=== PATIENT | female | born 1940 | race African-American/Black ===

== ENCOUNTER 2018-07-10 12:25 | Inpatient (IN) | payer MEDICARE ==
[~2018-07-10] VITALS: Ht 170.2 cm; Wt 57.8 kg
[2018-07-10 12:53] LABS: BASOPHILS % 0.4 % (0.0-2.0); CHLORIDE 112 mEq/L (98-107); EOSINOPHILS % 1.2 % (0.0-5.0); LYMPHOCYTES % 38.1 % (20.0-50.0); MEAN CORPUSCULAR VOLUME 71.8 fL (81.0-99.0); MONOCYTES % 6.3 % (2.0-8.0); PLATELET 206 x1000/uL (130-400); RED BLOOD CELL COUNT 2.85 mill/uL (4.2-5.4); RED CELL DISTRIBUTION WIDTH 16.1 % (11.6-14.6)
[2018-07-10 12:55] LABS: INR 1.1; PROTHROMBIN TIME 11.2 sec (9.6-11.0)
[2018-07-10 12:59] LABS: HEMOGLOBIN. 6.6 g/dL (12.0-16.0)
[2018-07-10 13:00] LABS: HEMATOCRIT. 20.5 % (36.0-48.0)
[2018-07-10] MEDS ORDERED: FAMOTIDINE 20MG/2ML VIAL IV ONE (13:15)
[2018-07-10] MEDS ORDERED: SODIUM CHLORIDE 0.9% 500 ML IV ONE (13:15)
[2018-07-10] MEDS ORDERED: PANTOPRAZOLE 40MG DR TABLET PO SCH (16:00)
[2018-07-10] MEDS ORDERED: PANTOPRAZOLE SODIUM 40 MG/VIAL IV ONE (16:30)
[2018-07-10 16:51] LABS: TOTAL IRON BINDING CAPACITY 217 ug/dL (250-450)
[2018-07-10 21:02] LABS: CLARITY URINE CLOUDY (CLEAR); COLOR URINE YELLOW (YELLOW); KETONES URINE NEGATIVE (NEGATIVE); LEUKOCYTE ESTERASE URINE NEGATIVE (NEGATIVE); NITRITE URINE NEGATIVE (NEGATIVE); OCCULT BLOOD URINE 3+ (NEGATIVE); PROTEIN URINE NEGATIVE (NEGATIVE); SPECIFIC GRAVITY URINE 1.013 (1.005-1.030); UROBILINOGEN URINE 0.2 E.U./dL (0.2-1.0)
[2018-07-10 21:22] VITALS: BP 155/54
[2018-07-10] MEDS ORDERED: HYDROCODONE/ACETAMINOPHEN 5/325MG TABLET PO PRN (21:30)
[2018-07-10] MEDS ORDERED: IPRATROPIUM/ALBUTEROL 0.5-3(2.5)MG/3ML NEB INH PRN (21:30)
[2018-07-10] MEDS ORDERED: ACETAMINOPHEN 650MG/20.3ML UDC GT PRN (21:30)
[2018-07-10] MEDS ORDERED: CLONIDINE 0.1MG TABLET PO PRN (21:30)
[2018-07-10] MEDS ORDERED: ACETAMINOPHEN 650MG SUPP PR PRN (21:30)
[2018-07-10] MEDS ORDERED: ONDANSETRON HCL 4MG/2ML INJ IV PRN (21:30)
[2018-07-10] MEDS ORDERED: MAGNESIUM/ALUMINUM HYDROXIDE/SIMETHICONE 30ML UDC PO PRN (21:30)
[2018-07-10] MEDS ORDERED: NA PHOS,M-B/NA PHOS,DI-BA ENEMA 118ML PR PRN (21:30)
[2018-07-10] MEDS ORDERED: DOCUSATE SODIUM 100MG CAPSULE PO PRN (21:30)
[2018-07-10] MEDS ORDERED: DIPHENHYDRAMINE 50MG/ML VIAL IV PRN (21:30)
[2018-07-10] MEDS ORDERED: GUAIFENESIN 200MG/10ML SUGAR FREE UDC PO PRN (21:30)
[2018-07-10 21:40] LABS: *AMPHETAMINES SCREEN URINE NEGATIVE (NEGATIVE); *BARBITURATES SCREEN URINE NEGATIVE (NEGATIVE); CANNABINOID URINE SCREEN NEGATIVE (NEGATIVE); METHADONE URINE SCREEN NEGATIVE (NEGATIVE); OPIATES URINE SCREEN NEGATIVE (NEGATIVE); PHENCYCLIDINE URINE SCREEN NEGATIVE (NEGATIVE)
[2018-07-10 21:41] LABS: *BENZODIAZEPINES SCREEN URINE NEGATIVE (NEGATIVE); *COCAINE SCREEN URINE NEGATIVE (NEGATIVE)
[2018-07-10 22:08] VITALS: BP 155/53
[2018-07-10 22:54] LABS: BASOPHILS % 0.3 % (0.0-2.0); EOSINOPHILS % 0.7 % (0.0-5.0); HEMATOCRIT. 22.5 % (36.0-48.0); HEMOGLOBIN. 7.4 g/dL (12.0-16.0); LYMPHOCYTES % 28.6 % (20.0-50.0); MEAN CORPUSCULAR HEMOGLOBIN 24.5 pg (28.0-32.0); MEAN CORPUSCULAR VOLUME 74.5 fL (81.0-99.0); MEAN PLATELET VOLUME 9.1 fl (7.4-10.4); MONOCYTES % 8.2 % (2.0-8.0); NEUTROPHILS % 62.2 % (40.0-76.0); PLATELET 179 x1000/uL (130-400); RED BLOOD CELL COUNT 3.02 mill/uL (4.2-5.4); RED CELL DISTRIBUTION WIDTH 17.4 % (11.6-14.6)
[2018-07-10] MEDS: SODIUM CHLORIDE 0.45% 1,000 ML IV SCH (23:30)
[2018-07-11] VITALS (84 sets, daily range): BP systolic 68–144; BP diastolic 27–72
[2018-07-11] MEDS ORDERED: OCTREOTIDE 1,000 MCG in SODIUM CHLORIDE 0.9% 100 ML IV PRN ×2 (03:30→04:00)
[2018-07-11] MEDS ORDERED: ALBUMIN HUMAN 25GM/100ML (25%) IV SCH (03:30)
[2018-07-11] MEDS ORDERED: NOREPINEPHRINE 4 MG in DEXT 5% WATER 246 ML IV PRN ×2 (03:30→04:00)
[2018-07-11] MEDS ORDERED: SODIUM CHLORIDE 0.9% 1000ML BAG (SEPSIS BOLUS) IV ONE (03:30)
[2018-07-11 05:28] LABS: BASOPHILS % 0.1 % (0.0-2.0); EOSINOPHILS % 0.5 % (0.0-5.0); LYMPHOCYTES % 17.4 % (20.0-50.0); MEAN CORPUSCULAR HEMOGLOBIN 25.9 pg (28.0-32.0); MEAN PLATELET VOLUME 8.9 fl (7.4-10.4); MONOCYTES % 6.6 % (2.0-8.0); NEUTROPHILS % 75.4 % (40.0-76.0); PLATELET 132 x1000/uL (130-400); RED BLOOD CELL COUNT 2.54 mill/uL (4.2-5.4); RED CELL DISTRIBUTION WIDTH 18.6 % (11.6-14.6)
[2018-07-11 05:35] LABS: CHLORIDE 118 mEq/L (98-107)
[2018-07-11 05:45] LABS: LDL CHOLESTEROL 58 mg/dL (5-100)
[2018-07-11 05:46] LABS: HDL CHOLESTEROL 44 mg/dL (40-59)
[2018-07-11 05:50] LABS: HEMATOCRIT. 19.6 % (36.0-48.0); HEMOGLOBIN. 6.6 g/dL (12.0-16.0)
[2018-07-11] MEDS: SODIUM CHLORIDE 0.9% INJ 3ML FLUSH IVF SCH ×3 (06:54→21:14)
[2018-07-11] MEDS: SODIUM CHLORIDE 0.45% 1,000 ML IV SCH (12:00)
[2018-07-11 12:55] LABS: HEMOGLOBIN 6.5 g/dL (12.0-16.0)
[2018-07-11 12:56] LABS: HEMATOCRIT 19.1 % (36.0-48.0)
[2018-07-11] MEDS ORDERED: BUPIVACAINE HCL 0.5% (5MG/ML) 50ML ONE (13:19)
[2018-07-11] MEDS ORDERED: LIDOCAINE HCL/PF 1% 10 MG/ML 5ML VIAL ONE (13:26)
[2018-07-11] MEDS ORDERED: ETOMIDATE 2MG/ML 10ML VIAL IV ONE (13:26)
[2018-07-11] MEDS ORDERED: MIDAZOLAM HCL 2 MG/2 ML VIAL ONE (13:26)
[2018-07-11] MEDS ORDERED: SUCCINYLCHOLINE CHLORIDE 200MG/10ML IV ONE (13:26)
[2018-07-11] MEDS ORDERED: FENTANYL CITRATE/PF 50MCG/ML 2ML VIAL ONE (13:26)
[2018-07-11] MEDS ORDERED: ROCURONIUM BROMIDE 10MG/ML VIAL 5ML IV ONE (13:27)
[2018-07-11] MEDS ORDERED: PHENYLEPHRINE HCL 10 MG/ML 1ML (IV VIAL) IV ONE (14:06)
[2018-07-11] MEDS ORDERED: METRONIDAZOLE 500 MG PREMIX 100 ML IV ONE (14:19)
[2018-07-11] MEDS ORDERED: LEVOFLOXACIN 500MG PREMIX 100 ML IV ONE (14:19)
[2018-07-11] MEDS ORDERED: EPHEDRINE SULFATE 50MG/ML VIAL ONE (14:28)
[2018-07-11] MEDS ORDERED: SODIUM CHLORIDE 0.9% 10ML VIAL ONE (14:28)
[2018-07-11] MEDS ORDERED: HYDROCORTISONE SOD SUCCINATE 100 MG/2 ML VIAL ONE (15:08)
[2018-07-11] MEDS ORDERED: GLYCOPYRROLATE 0.2 MG/ML 2ML VIAL ONE ×2 (15:12→15:16)
[2018-07-11] MEDS ORDERED: NEOSTIGMINE METHYLSULFATE 1MG/ML 10 ML VIAL ONE (15:12)
[2018-07-11] MEDS ORDERED: ACETAMINOPHEN 650MG SUPP PR PRN (15:15)
[2018-07-11] MEDS ORDERED: ONDANSETRON HCL 4MG/2ML INJ IV PRN (15:15)
[2018-07-11] MEDS ORDERED: ONDANSETRON HCL 4MG/2ML INJ ONE (15:28)
[2018-07-11] MEDS ORDERED: HYDROMORPHONE HCL/PF 2MG/ML CPJ IV PRN (16:00)
[2018-07-11] MEDS: DEXT 5%/0.45% NACL KCL 20MEQ/L 1,000 ML IV SCH (17:45)
[2018-07-11] MEDS: METRONIDAZOLE 500 MG PREMIX 100 ML IV SCH (17:46)
[2018-07-11] MEDS: MORPHINE SULFATE 4 MG/ML CPJ (NOT FOR IM USE) IV PRN ×2 (17:46→21:11)
[2018-07-11] MEDS ORDERED: LEVOFLOXACIN 500MG PREMIX 100 ML IV SCH (20:00)
[2018-07-11 21:07] LABS: HEMATOCRIT. 28.3 % (36.0-48.0); HEMOGLOBIN. 9.8 g/dL (12.0-16.0); MEAN CORPUSCULAR HEMOGLOBIN 28.5 pg (28.0-32.0); MEAN CORPUSCULAR VOLUME 81.9 fL (81.0-99.0); PLATELET 67 x1000/uL (130-400); RED BLOOD CELL COUNT 3.45 mill/uL (4.2-5.4); RED CELL DISTRIBUTION WIDTH 15.6 % (11.6-14.6)
[2018-07-11] MEDS: FAMOTIDINE 20MG/2ML VIAL IV SCH (21:10)
[2018-07-11 21:32] LABS: PLATELET ESTIMATE DECREASED
[2018-07-12] VITALS (89 sets, daily range): BP systolic 110–181; BP diastolic 53–93
[2018-07-12 00:20] LABS: HEMATOCRIT 25.2 % (36.0-48.0); HEMOGLOBIN 8.7 g/dL (12.0-16.0)
[2018-07-12] MEDS: DEXT 5%/0.45% NACL KCL 20MEQ/L 1,000 ML IV SCH ×2 (01:41→15:38)
[2018-07-12] MEDS: METRONIDAZOLE 500 MG PREMIX 100 ML IV SCH ×2 (01:42→09:32)
[2018-07-12] MEDS: SODIUM CHLORIDE 0.9% INJ 3ML FLUSH IVF SCH ×3 (06:24→22:00)
[2018-07-12] MEDS: FAMOTIDINE 20MG/2ML VIAL IV SCH (09:32)
[2018-07-12] MEDS: MORPHINE SULFATE 4 MG/ML CPJ (NOT FOR IM USE) IV PRN ×2 (10:50→20:42)
[2018-07-12 16:42] LABS: BASOPHILS % 0.1 % (0.0-2.0); EOSINOPHILS % 0.2 % (0.0-5.0); LYMPHOCYTES % 8.3 % (20.0-50.0); MEAN CORPUSCULAR HEMOGLOBIN 27.9 pg (28.0-32.0); MEAN CORPUSCULAR VOLUME 80.6 fL (81.0-99.0); MEAN PLATELET VOLUME 9.5 fl (7.4-10.4); MONOCYTES % 8.2 % (2.0-8.0); NEUTROPHILS % 83.2 % (40.0-76.0); PLATELET 68 x1000/uL (130-400)
[2018-07-12] MEDS ORDERED: HYDRALAZINE 20MG/ML VIAL IV PRN (20:45)
[2018-07-12] MEDS ORDERED: AMLO10TA4 PO (21:25)
[2018-07-12] MEDS ORDERED: BENA40TA66 PO (21:25)
[2018-07-12] MEDS ORDERED: METF500T PO (21:25)
[2018-07-12] MEDS ORDERED: FERR-71 PO (21:25)
[2018-07-12] MEDS ORDERED: ATOR80TA PO (21:25)
[2018-07-12] MEDS ORDERED: CHLO50TA PO (21:25)
[2018-07-13] VITALS (45 sets, daily range): BP systolic 126–156; BP diastolic 65–96
[2018-07-13] MEDS ORDERED: HYDRALAZINE 20MG/ML VIAL IV SCH
[2018-07-13] MEDS: DEXT 5%/0.45% NACL KCL 20MEQ/L 1,000 ML IV SCH ×3 (01:46→19:39)
[2018-07-13] MEDS: PHENOL/SODIUM PHENOLATE 1.4% SRPAY 177ML MM PRN ×2 (01:46→06:23)
[2018-07-13] MEDS: SODIUM CHLORIDE 0.9% INJ 3ML FLUSH IVF SCH ×3 (05:39→21:26)
[2018-07-13] MEDS: FAMOTIDINE 20MG/2ML VIAL IV SCH (09:38)
[2018-07-13 10:00] LABS: HEMATOCRIT 26.6 % (36.0-48.0); HEMOGLOBIN 9.1 g/dL (12.0-16.0); MEAN CORPUSCULAR HEMOGLOBIN 27.8 pg (28.0-32.0); MEAN CORPUSCULAR VOLUME 80.9 fL (81.0-99.0); PLATELET 63 x1000/uL (130-400); RED BLOOD CELL COUNT 3.29 mill/uL (4.2-5.4); RED CELL DISTRIBUTION WIDTH 17.5 % (11.6-14.6)
[2018-07-13 10:18] LABS: CHLORIDE 114 mEq/L (98-107)
[2018-07-13] MEDS: MORPHINE SULFATE 4 MG/ML CPJ (NOT FOR IM USE) IV PRN (21:56)
[2018-07-14] VITALS: BP 140/71
[2018-07-14 04:00] VITALS: BP 112/55
[2018-07-14 08:00] VITALS: BP 147/73
[2018-07-14] MEDS: FAMOTIDINE 20MG/2ML VIAL IV SCH (09:03)
[2018-07-14] MEDS: DEXT 5%/0.45% NACL KCL 20MEQ/L 1,000 ML IV SCH ×2 (09:07→21:03)
[2018-07-14] MEDS: SODIUM CHLORIDE 0.9% INJ 3ML FLUSH IVF SCH ×3 (09:07→21:04)
[2018-07-14 12:00] VITALS: BP 116/59
[2018-07-14 16:00] VITALS: BP 122/58
[2018-07-14 20:00] VITALS: BP 152/65
[2018-07-14] MEDS: MORPHINE SULFATE 4 MG/ML CPJ (NOT FOR IM USE) IV PRN (22:25)
[2018-07-15] VITALS: BP 128/57
[2018-07-15] MEDS: ACETAMINOPHEN 325MG TABLET PO PRN ×2 (00:41→07:02)
[2018-07-15 04:00] VITALS: BP 119/53
[2018-07-15] MEDS: SODIUM CHLORIDE 0.9% INJ 3ML FLUSH IVF SCH ×3 (06:00→21:44)
[2018-07-15] MEDS: DEXT 5%/0.45% NACL KCL 20MEQ/L 1,000 ML IV SCH (07:02)
[2018-07-15 08:05] VITALS: BP 135/65
[2018-07-15] MEDS: FAMOTIDINE 20MG/2ML VIAL IV SCH (08:37)
[2018-07-15 11:38] LABS: HEMATOCRIT 28.5 % (36.0-48.0); HEMOGLOBIN 9.5 g/dL (12.0-16.0); MEAN CORPUSCULAR HEMOGLOBIN 27.8 pg (28.0-32.0); MEAN CORPUSCULAR VOLUME 83.8 fL (81.0-99.0); PLATELET 83 x1000/uL (130-400); RED CELL DISTRIBUTION WIDTH 17.4 % (11.6-14.6)
[2018-07-15 12:00] VITALS: BP 135/60
[2018-07-15 16:00] VITALS: BP 141/68
[2018-07-15 20:00] VITALS: BP 139/60
[2018-07-16] VITALS: BP 119/50
[2018-07-16 04:00] VITALS: BP 137/59
[2018-07-16] MEDS: SODIUM CHLORIDE 0.9% INJ 3ML FLUSH IVF SCH ×2 (06:30→14:11)
[2018-07-16 07:15] LABS: HEMATOCRIT 24.7 % (36.0-48.0); HEMOGLOBIN 8.2 g/dL (12.0-16.0); MEAN CORPUSCULAR HEMOGLOBIN 27.2 pg (28.0-32.0); MEAN CORPUSCULAR VOLUME 82.1 fL (81.0-99.0); PLATELET 108 x1000/uL (130-400)
[2018-07-16 08:00] VITALS: BP 120/56
[2018-07-16] MEDS: FAMOTIDINE 20MG/2ML VIAL IV SCH (09:23)
[2018-07-16 12:00] VITALS: BP_SYST 124; BP_SYST 128; BP_DIAS 54; BP_DIAS 64
[2018-07-16 16:00] VITALS: BP 139/62
[2018-07-16 17:22] VITALS: BP 139/62
[2018-07-16 17:30] LABS: HEMATOCRIT 24.7 % (36.0-48.0); HEMOGLOBIN 8.3 g/dL (12.0-16.0)
== END 2018-07-16 19:05 | disposition home or self-care (01) | DRG 330 ==
LOC: ER 12:41 → 8WST 14:39 → EDBEDREQ 14:40 → ENRESERV 20:51 → CVICU 07-11 04:00 → 7WST 07-13 23:23
PROVIDERS: ADMIT Family Medicine; ATTEND Family Medicine
PROC: 30233K1 Transfusion of Nonautologous Frozen Plasma into Peripheral Vein, Percutaneous Approach (ICD-10-PCS; 2018-07-10)
PROC: 0DTF0ZZ Resection of Right Large Intestine, Open Approach (ICD-10-PCS; principal; 2018-07-11)
PROC: 0DNL0ZZ Release Transverse Colon, Open Approach (ICD-10-PCS; 2018-07-11)
PROC: 30233N1 Transfusion of Nonautologous Red Blood Cells into Peripheral Vein, Percutaneous Approach (ICD-10-PCS; 2018-07-11)
PROC: 02HV33Z Insertion of Infusion Device into Superior Vena Cava, Percutaneous Approach (ICD-10-PCS; 2018-07-11)
PROC: B548ZZA Ultrasonography of Superior Vena Cava, Guidance (ICD-10-PCS; 2018-07-11)
DX: K57.31 Diverticulosis of large intestine without perforation or abscess with bleeding (principal); K56.7 Ileus, unspecified; D62 Acute posthemorrhagic anemia; I10 Essential (primary) hypertension; E11.9 Type 2 diabetes mellitus without complications; Z79.899 Other long term (current) drug therapy; Z79.84 Long term (current) use of oral hypoglycemic drugs
CPT/HCPCS: 36415; 36430; 36569; 71045; 74176; 76705; 76937; 78278; 80048; 80061; 80305; 82728; 82962; 83540; 83550; 84484; 85014; 85018; 85027; 86850; 86900; 86920; 86927; 86945; 88307; 93005; 97116; 97162; 97166; 99291; A9560; C1725; C9113; J0330; J1720; J1956; J2250; J2270; J2354; J2370; J2405; J2710; J3010; J3490; J7040; J7050; P9016; P9017; P9047; A4315

== ENCOUNTER 2019-02-23 16:53 | Inpatient (IN) | payer MEDICARE ==
[~2019-02-23] VITALS: Ht 170.2 cm; Wt 59.9 kg
[~2019-02-23 16:53] MED LIST: AMLO10TA4 PO; ATOR80TA PO; BENA40TA66 PO; CHLO50TA PO; FERR-71 PO; METF500T PO
[2019-02-23 17:38] LABS: CHLORIDE 110 mEq/L (98-107); PARTIAL THROMBOPLASTIN TIME 21.4 sec (23.4-31.0); PROTHROMBIN TIME 10.5 sec (9.6-11.0)
[2019-02-23 17:39] LABS: BASOPHILS % 0.7 % (0.0-2.0); EOSINOPHILS % 0.8 % (0.0-5.0); HEMATOCRIT. 28.2 % (36.0-48.0); HEMOGLOBIN. 8.9 g/dL (12.0-16.0); LYMPHOCYTES % 35.9 % (20.0-50.0); MEAN PLATELET VOLUME 8.8 fl (7.4-10.4); MONOCYTES % 8.8 % (2.0-8.0); NEUTROPHILS % 53.8 % (40.0-76.0); PLATELET 138 x1000/uL (130-400); RED BLOOD CELL COUNT 3.71 mill/uL (4.2-5.4); RED CELL DISTRIBUTION WIDTH 16.4 % (11.6-14.6)
[2019-02-23 17:43] LABS: ETHANOL BLOOD 50 mg/dL
[2019-02-23 20:04] LABS: CLARITY URINE CLEAR (CLEAR); COLOR URINE YELLOW (YELLOW); KETONES URINE NEGATIVE (NEGATIVE); LEUKOCYTE ESTERASE URINE 1+ (NEGATIVE); NITRITE URINE NEGATIVE (NEGATIVE); OCCULT BLOOD URINE TRACE (NEGATIVE); PROTEIN URINE NEGATIVE (NEGATIVE); SPECIFIC GRAVITY URINE 1.011 (1.005-1.030); UROBILINOGEN URINE 0.2 E.U./dL (0.2-1.0)
[2019-02-23 20:15] LABS: *AMPHETAMINES SCREEN URINE NEGATIVE (NEGATIVE); *BARBITURATES SCREEN URINE NEGATIVE (NEGATIVE)
[2019-02-23 20:16] LABS: *BENZODIAZEPINES SCREEN URINE NEGATIVE (NEGATIVE); *COCAINE SCREEN URINE NEGATIVE (NEGATIVE); CANNABINOID URINE SCREEN NEGATIVE (NEGATIVE); METHADONE URINE SCREEN NEGATIVE (NEGATIVE); OPIATES URINE SCREEN NEGATIVE (NEGATIVE); PHENCYCLIDINE URINE SCREEN NEGATIVE (NEGATIVE)
[2019-02-23] MEDS ORDERED: CEFTRIAXONE 1 G PREMIX 50 ML IV ONE (20:30)
[2019-02-24 00:12] VITALS: BP 143/50
[2019-02-24] MEDS ORDERED: DICL100G31 TP (00:48)
[2019-02-24] MEDS ORDERED: DEXTROSE 50% WATER 50ML SYRINGE IV PRN (01:45)
[2019-02-24 02:24] LABS: HEMATOCRIT 27.6 % (36.0-48.0); HEMOGLOBIN 8.7 g/dL (12.0-16.0); MEAN CORPUSCULAR HEMOGLOBIN 23.6 pg (28.0-32.0); MEAN CORPUSCULAR VOLUME 74.8 fL (81.0-99.0); PLATELET 140 x1000/uL (130-400); RED BLOOD CELL COUNT 3.69 mill/uL (4.2-5.4); RED CELL DISTRIBUTION WIDTH 16.2 % (11.6-14.6)
[2019-02-24 04:00] VITALS: BP 108/57
[2019-02-24] MEDS: DEXT 5%/0.45% NACL KCL 20MEQ/L 1,000 ML IV SCH ×2 (04:29→19:31)
[2019-02-24] MEDS: BLOOD SUGAR DIAGNOSTIC STRIP TEST SCH ×3 (05:41→18:00)
[2019-02-24] MEDS: INSULIN LISPRO 100 UNITS/ML SUBCUT SCH ×3 (05:41→18:00)
[2019-02-24 06:53] LABS: HEMATOCRIT 24.7 % (36.0-48.0)
[2019-02-24 07:18] LABS: CREATINE KINASE MB FRACTION 1.5 ng/mL (0.5-3.6)
[2019-02-24 08:00] VITALS: BP 120/47
[2019-02-24] MEDS ORDERED: MEDICATION NOT ON FORMULARY EA (Diclofenac Sodium 100 GM) TP SCH (09:00)
[2019-02-24] MEDS: PANTOPRAZOLE SODIUM 40 MG/VIAL IV SCH (10:28)
[2019-02-24] MEDS: LISINOPRIL 20MG TABLET PO SCH (10:28)
[2019-02-24 11:59] LABS: BG BASE EXCESS -2.7 mmol/L (-2.0-2.0); BG CARBOXYHEMOGLOBIN 0.7 % (0.5-1.5); BG DEOXYHEMOGLOBIN 2.5 % (0.0-5.0); BG FRACTION INSPIRED OXYGEN 21; BG HCO3 ACT 20.8 mmol/L (22.0-26.0); BG METHEMOGLOBIN 0.2 % (0.0-1.5); BG OXYGEN SATURATION 97.5 % (92.0-98.5); BG OXYHEMOGLOBIN 96.6 % (94.0-97.0); BG PCO2 30.9 mmHg (35.0-45.0); BG PH 7.445 (7.350-7.450); BG PO2 102.1 mmHg (75.0-100.0); BG SAMPLE SITE LEFT BRACHIAL; BG TOTAL HEMOGLOBIN 9.1 g/dL (12.0-18.0); BG VENT MODE ROOM AIR
[2019-02-24 12:00] VITALS: BP 131/66
[2019-02-24 12:42] LABS: TOTAL IRON BINDING CAPACITY 297 ug/dL (250-450)
[2019-02-24] MEDS ORDERED: BISACODYL 10MG SUPP PR PRN (15:00)
[2019-02-24] MEDS ORDERED: ACETAMINOPHEN 650MG SUPP PR PRN (15:00)
[2019-02-24] MEDS ORDERED: ACETAMINOPHEN 325MG TABLET PO PRN (15:00)
[2019-02-24] MEDS ORDERED: ONDANSETRON HCL 4MG/2ML INJ IV PRN (15:00)
[2019-02-24] MEDS ORDERED: BISACODYL 10MG SUPP PR NR (15:00)
[2019-02-24] MEDS ORDERED: DIPHENHYDRAMINE 50MG/ML VIAL IV PRN (15:00)
[2019-02-24] MEDS ORDERED: HYDRALAZINE 20MG/ML VIAL IV PRN (15:00)
[2019-02-24] MEDS ORDERED: IPRATROPIUM/ALBUTEROL 0.5-3(2.5)MG/3ML NEB HHN PRN (15:00)
[2019-02-24 16:00] VITALS: BP 149/57
[2019-02-24 16:51] LABS: HEMATOCRIT 30.2 % (36.0-48.0); HEMOGLOBIN 9.4 g/dL (12.0-16.0)
[2019-02-24 17:21] LABS: CREATINE KINASE 198 IU/L (26-192)
[2019-02-24 17:23] LABS: CREATINE KINASE MB FRACTION 1.4 ng/mL (0.5-3.6)
[2019-02-24] MEDS: DOCUSATE SODIUM 100MG CAPSULE PO SCH (19:31)
[2019-02-24] MEDS: FERROUS SULFATE 325MG TABLET PO SCH (19:31)
[2019-02-24 20:00] VITALS: BP 120/55
[2019-02-24] MEDS: ATORVASTATIN CALCIUM 40MG TABLET PO SCH (20:25)
[2019-02-24] MEDS: CEFTRIAXONE 1 G PREMIX 50 ML IV SCH (20:26)
[2019-02-24 20:49] LABS: HEMATOCRIT 27.4 % (36.0-48.0); HEMOGLOBIN 8.8 g/dL (12.0-16.0)
[2019-02-24 23:09] LABS: CREATINE KINASE MB FRACTION 1.3 ng/mL (0.5-3.6)
[2019-02-25] VITALS (10 sets, daily range): BP systolic 99–142; BP diastolic 49–70
[2019-02-25] MEDS: BLOOD SUGAR DIAGNOSTIC STRIP TEST SCH ×4 (00:28→18:18)
[2019-02-25 00:31] LABS: HEMATOCRIT 26.3 % (36.0-48.0); HEMOGLOBIN 8.4 g/dL (12.0-16.0)
[2019-02-25] MEDS: DEXT 5%/0.45% NACL KCL 20MEQ/L 1,000 ML IV SCH ×2 (05:19→18:27)
[2019-02-25] MEDS: INSULIN LISPRO 100 UNITS/ML SUBCUT SCH ×4 (05:41→18:00)
[2019-02-25 07:54] LABS: BASOPHILS % 0.2 % (0.0-2.0); EOSINOPHILS % 1.6 % (0.0-5.0); HEMATOCRIT. 22.7 % (36.0-48.0); HEMOGLOBIN. 7.2 g/dL (12.0-16.0); LYMPHOCYTES % 26.6 % (20.0-50.0); MEAN CORPUSCULAR HEMOGLOBIN 23.9 pg (28.0-32.0); MEAN CORPUSCULAR VOLUME 75.9 fL (81.0-99.0); MEAN PLATELET VOLUME 9.3 fl (7.4-10.4); MONOCYTES % 8.7 % (2.0-8.0); NEUTROPHILS % 62.9 % (40.0-76.0); PLATELET 111 x1000/uL (130-400); RED BLOOD CELL COUNT 2.99 mill/uL (4.2-5.4); RED CELL DISTRIBUTION WIDTH 16.4 % (11.6-14.6)
[2019-02-25 08:07] LABS: CHLORIDE 108 mEq/L (98-107)
[2019-02-25 08:21] LABS: T4 FREE 0.84 ng/dL (0.76-1.46)
[2019-02-25] MEDS: DOCUSATE SODIUM 100MG CAPSULE PO SCH ×2 (09:25→18:26)
[2019-02-25] MEDS: PANTOPRAZOLE SODIUM 40 MG/VIAL IV SCH ×2 (09:28→22:01)
[2019-02-25] MEDS: LISINOPRIL 20MG TABLET PO SCH (09:28)
[2019-02-25] MEDS: FERROUS SULFATE 325MG TABLET PO SCH ×3 (09:29→18:26)
[2019-02-25 21:03] LABS: HEMATOCRIT 29.4 % (36.0-48.0); HEMOGLOBIN 9.6 g/dL (12.0-16.0)
[2019-02-25] MEDS: ATORVASTATIN CALCIUM 40MG TABLET PO SCH (22:00)
[2019-02-25] MEDS: CEFTRIAXONE 1 G PREMIX 50 ML IV SCH (22:00)
[2019-02-26] VITALS: BP 126/64
[2019-02-26 04:00] VITALS: BP 132/57
[2019-02-26] MEDS: INSULIN LISPRO 100 UNITS/ML SUBCUT SCH ×4 (06:00→18:00)
[2019-02-26] MEDS: BLOOD SUGAR DIAGNOSTIC STRIP TEST SCH ×4 (06:20→18:07)
[2019-02-26] MEDS: DEXT 5%/0.45% NACL KCL 20MEQ/L 1,000 ML IV SCH ×2 (06:21→18:07)
[2019-02-26 07:22] LABS: BASOPHILS % 0.2 % (0.0-2.0); EOSINOPHILS % 2.3 % (0.0-5.0); HEMATOCRIT. 30.1 % (36.0-48.0); HEMOGLOBIN. 9.6 g/dL (12.0-16.0); LYMPHOCYTES % 37.3 % (20.0-50.0); MEAN CORPUSCULAR HEMOGLOBIN 24.5 pg (28.0-32.0); MEAN CORPUSCULAR VOLUME 76.2 fL (81.0-99.0); MEAN PLATELET VOLUME 9.3 fl (7.4-10.4); MONOCYTES % 11.8 % (2.0-8.0); NEUTROPHILS % 48.4 % (40.0-76.0); PLATELET 139 x1000/uL (130-400); RED BLOOD CELL COUNT 3.95 mill/uL (4.2-5.4); RED CELL DISTRIBUTION WIDTH 17.2 % (11.6-14.6)
[2019-02-26 07:24] LABS: PARTIAL THROMBOPLASTIN TIME 24.8 sec (23.4-31.0); PROTHROMBIN TIME 10.5 sec (9.6-11.0)
[2019-02-26 07:56] LABS: FOLIC ACID (FOLATE) SERUM 11.2 ng/mL (>5.38)
[2019-02-26 08:00] VITALS: BP 138/60
[2019-02-26] MEDS ORDERED: SIMETHICONE 40 MG/0.6 ML 30ML ONE (12:10)
[2019-02-26] MEDS ORDERED: MIDAZOLAM HCL 5 MG/5 ML VIAL ONE (12:13)
[2019-02-26] MEDS ORDERED: FENTANYL CITRATE/PF 50MCG/ML 2ML VIAL ONE (12:13)
[2019-02-26] MEDS ORDERED: DIAZEPAM 5 MG/ML 2ML CPJ ONE (12:13)
[2019-02-26] MEDS ORDERED: MIDAZOLAM HCL 2 MG/2 ML VIAL IV PRN (12:25)
[2019-02-26] MEDS ORDERED: FENTANYL CITRATE/PF 50MCG/ML 2ML VIAL IV PRN (12:27)
[2019-02-26] MEDS: FERROUS SULFATE 325MG TABLET PO SCH ×3 (12:50→18:03)
[2019-02-26] MEDS: DOCUSATE SODIUM 100MG CAPSULE PO SCH ×2 (17:00→18:06)
[2019-02-26] MEDS: PANTOPRAZOLE SODIUM 40 MG/VIAL IV SCH (18:03)
[2019-02-26] MEDS: LISINOPRIL 20MG TABLET PO SCH (18:05)
[2019-02-26 18:35] VITALS: BP 123/51
== END 2019-02-26 20:56 | disposition home or self-care (01) | DRG 391 ==
LOC: ER 16:53 → EDBD 22:32 → 6WST 22:32 → EDBEDREQ 22:40 → EDBEDREQTM 22:40 → ENRESERV 22:57
PROVIDERS: ADMIT Internal Medicine; ATTEND Internal Medicine
PROC: 30233N1 Transfusion of Nonautologous Red Blood Cells into Peripheral Vein, Percutaneous Approach (ICD-10-PCS; 2019-02-25)
PROC: 0DB68ZX Excision of Stomach, Via Natural or Artificial Opening Endoscopic, Diagnostic (ICD-10-PCS; principal; 2019-02-26)
DX: K29.00 Acute gastritis without bleeding (principal); I50.33 Acute on chronic diastolic (congestive) heart failure; N39.0 Urinary tract infection, site not specified; D61.818 Other pancytopenia; I11.0 Hypertensive heart disease with heart failure; D50.9 Iron deficiency anemia, unspecified; E11.9 Type 2 diabetes mellitus without complications; E86.0 Dehydration; K44.9 Diaphragmatic hernia without obstruction or gangrene; K56.41 Fecal impaction; K57.90 Diverticulosis of intestine, part unspecified, without perforation or abscess without bleeding; Z90.49 Acquired absence of other specified parts of digestive tract; Z91.013 Allergy to seafood; Z79.899 Other long term (current) drug therapy; Z79.84 Long term (current) use of oral hypoglycemic drugs
CPT/HCPCS: 36415; 36600; 71045; 74176; 76700; 80048; 80053; 80305; 80320; 81003; 82040; 82270; 82375; 82550; 82553; 82607; 82728; 82746; 82805; 82962; 82977; 83036; 83540; 83550; 83880; 84439; 84443; 84484; 85014; 85018; 85025; 85027; 86803; 86850; 86900; 86920; 87015; 87045; 87340; 87427; 87449; 88305; 88313; 89055; 93005; 93306; 93880; 93970; 96365; 96375; 97161; 99152; 99285; C9113; J0696; J2250; J3010; J7040; P9016; G0480; G0500